=== PATIENT | male | born 1970 | race Caucasian/White ===

== ENCOUNTER 2020-10-23 10:50 | Emergency (ER) | payer OTHER, SELFPAY ==
--- NOTE | ~2020-10-23 | CT_ITS ---
EXAMINATION: CT abdomen pelvis wo con DATE: 10/23/2020 13:17 INDICATION: Left flank pain. Nausea and vomiting. TECHNIQUE: Computed tomography (CT) of the abdomen and pelvis was performed without intravenous contr ast. Automated exposure control and iterative reconstruction technique were employed. The dose-length product was 348.68 mGy-cm. COMPARISON: CT abdomen and pelvis 03/08/2018 FINDINGS: The visualized portions of the lung bases are clear without pneumonia or pleural effusion. The heart size is normal. There are coronary artery calcifications. No pericardial effusion. The live r, gallbladder, spleen, pancreas, and adrenal glands are normal. There are cysts in the kidneys measu ring up to 4.5 cm on the left. There is a 1 mm stone in right kidney. There is mild left hydronephros is. There is a 5 mm stone in proximal left ureter. There is prominent fat in the inguinal canals bila terally that may be small hernias. The prostate is moderately enlarged. There are no dilated loops of bowel. The appendix is normal. There are no pathologically enlarged lymph nodes. There is no free in traperitoneal fluid. There is moderate lumbar spondylosis. There is a chronic compression fracture of L3. IMPRESSION: 1. 5 mm stone in proximal left ureter with mild left hydronephrosis. 2. 1 mm nonobstructing right kidney stone. Reviewed, dictated and finalized at location A.
[2020-10-23 10:54] VITALS: BP 146/99; PULSE 102; RESP 16; TEMP 36.1; O2SAT 98
[2020-10-23 11:07] LABS: Basophils Percent Auto 0.4 % (0.2-1.2); Eosinophils Absolute Auto 0.3 K/mm3 (0-0.3); Eosinophils Percent Auto 3.2 % (0-4.4); Hematocrit 45.8 % (42.0-52.0); Hemoglobin 15.1 g/dL (14.0-18.0); Immature Granulocyte Absolute 0.02 K/mm3 (0.00-0.031); Immature Granulocyte Percent A 0.2 % (0-0.5); Lymphocytes Absolute Auto 1.64 K/mm3 (0.9-3.2); Lymphocytes Percent Auto 16.5 % (18.3-44.2); Mean Corpuscular Hemoglobin 30.4 pg (26-34); Mean Corpuscular Volume 92.3 fl (80-100); Mean Platelet Volume 10.8 fl (7.4-10.4); Monocytes Absolute Auto 1.1 K/mm3 (0.1-0.6); Monocytes Percent Auto 10.7 % (2.6-8.5); Neutrophils Absolute Auto 6.9 K/mm3 (1.3-6.7); Platelet Count Result 244 k/mm3 (150-375); Red Blood Count 4.96 M/mm3 (4.6-6.20); Red Cell Distribution Width 12.3 % (11.5-14.5)
[2020-10-23 11:20] LABS: Anion Gap 8 mmol/L (8-16); Blood Urea Nitrogen 10 mg/dL (9-20); Calcium 9.3 mg/dL (8.4-10.2); Carbon Dioxide 23 mmol/L (22-30); Chloride 108 mmol/L (98-107); Estimated CRCL calculation 78 ml/min; Estimated Glomerular Filt Rate > 60; Glucose 103 mg/dL (65-110); Potassium 3.9 mmol/L (3.4-5.0); Sodium 139 mmol/L (137-145)
[2020-10-23 12:33] VITALS: BP 151/106; PULSE 88; RESP 14; O2SAT 99
--- NOTE | 2020-10-23 12:50 | PC.NURSE ---
pt. to BR to attempt to void again
--- NOTE | 2020-10-23 12:52 | ED.ABDPAIN ---
HPI - Abdominal Pain General Chief Complaint: Abdominal Pain Stated Complaint: Flank pain Time Seen by Provider: 10/23/20 12:44 History of Present Illness HPI narrative: Patient presents with left flank pain. Pain reported symptoms present for the past couple days and getting progressively worse. Pain is achy, constant, intensity waxes and wanes. There are no clear aggravating or alleviating factors. Patient is not noted any dysuria or hematuria. Patient with a history of kidney stones and is symptoms feel similar to his prior stone. Reports last night he had some nausea and vomiting due to pain. Denies any diarrhea or constipation Related Data Home Medications Medication Instructions Recorded Confirmed amlodipine 10 mg PO DAILY 10/23/20 atorvastatin 40 mg PO DAILY 10/23/20 hydrochlorothiazide 12.5 mg PO DAILY 10/23/20 metoprolol tartrate [Lopressor] 50 mg PO DAILY 10/23/20 Allergies Allergy/AdvReac Type Severity Reaction Status Date / Time No Known Allergies Allergy Unverified 10/23/20 12:39 Review of Systems Review of Systems: CONSTITUTIONAL: Denies fever, chills, or sweats. EYES: Denies visual changes, redness, or discharge. ENT: Denies rhinorrhea, congestion, sore throat, or otalgia. CARDIOVASCULAR: Denies chest pain, palpitations, or edema. RESPIRATORY: Denies cough or dyspnea. GASTROINTESTINAL: Denies diarrhea. GENITOURINARY: Denies dysuria or hematuria. SKIN: Denies rash or itching. MUSCULOSKELETAL: Denies back pain, joint pain, or myalgia. NEUROLOGIC: Denies headache, numbness, dizziness, or weakness. PSYCHIATRIC: Denies anxiety or depression. All systems reviewed & are unremarkable except as noted in HPI and below Exam Narrative: GENERAL: Well-appearing, well-nourished, and in no acute distress. HEAD: Normocephalic, atraumatic. EYES: PERRLA and EOMI. ENT: Nares clear, no rhinorrhea or epistaxis. Mucous membranes moist. NECK: Supple. No masses. No JVD ABDOMEN: Soft, nontender, nondistended, normal active bowel sounds. BACK: No focal tenderness no CVA tenderness EXTREMITIES: Normal range of motion. No edema. SKIN: Warm, dry, no rash. NEURO: No focal deficits. Alert and oriented x3. PSYCH: Normal mood and affect. Course Reevaluation(s) Reevaluation #1: Reports feeling much improved results and plan reviewed with patient Date: 10/23/20 Time: 13:57 Vital Signs Vital signs: Vital Signs Temperature 36.1 C L 10/23/20 10:54 Pulse Rate 102 H 10/23/20 10:54 Respiratory Rate 16 10/23/20 10:54 Blood Pressure 146/99 H 10/23/20 10:54 Pulse Oximetry 98 10/23/20 10:54 Temperature 36.1 C L 10/23/20 10:54 Pulse Rate 89 10/23/20 14:32 Respiratory Rate 17 10/23/20 14:32 Blood Pressure 146/95 H 10/23/20 14:32 Pulse Oximetry 100 10/23/20 14:32 MDM - Abdominal Pain MDM Narrative Medical decision making narrative: H&P as above, vss, pt looks clinically well, exam reassuring, labs reassuring, img with 5 mm proximal stone on the left, additional labs/img considered, symptomatic relief available as needed, on reevaluation pt continues to looks clinically well. Suspect ureteral stone as etiology of patient's plan, dns acute kidney injury, infected stone, sepsis. plan to tx/monitor as op w/ pcm f/u findings/plan discussed with pt, pt agree/comfortable with plan, return precautions given Lab Data Result diagrams: 10/23/20 11:01 10/23/20 11:01 Labs: Lab Results 10/23/20 10/23/20 10/23/20 Range/Units 11:01 11:01 13:05 WBC 10.0 (4.5-10.0) K/mm3 RBC 4.96 (4.6-6.20) M/mm3 Hgb 15.1 (14.0-18.0) g/dL Hct 45.8 (42.0-52.0) % MCV 92.3 (80-100) fl MCH 30.4 (26-34) pg MCHC 33.0 (32-36) g/dl RDW 12.3 (11.5-14.5) % Plt Count 244 (150-375) k/mm3 MPV 10.8 H (7.4-10.4) fl Immature Gran % (Auto) 0.2 (0-0.5) % Neut % (Auto) 69.0 (45.5-73.1) % Lymph % (Auto) 16.5 L (18.3-44.2) % [place] % (Auto) 10.7
--- NOTE | 2020-10-23 13:04 | PC.NURSE ---
pt. voided scant amount of urine. Pt. aware may not be enough.
[2020-10-23] MEDS: KETOROLAC 15 MG/ML VIAL (*BKC) IV PUSH (13:11)
[2020-10-23 13:19] LABS: Add Urine Microscopic? YES; Appearance Urine Clear (Clear); Bilirubin Urine Negative (Negative); Blood Urine Negative (Negative); Color Urine Yellow (Yellow); Glucose Urine UA Negative (Negative); Ketones Urine Negative (Negative); Leukocyte Esterase Ur 1+ LEU/UL (Negative); Nitrate Urine Negative (Negative); Protein Urine Negative (Negative); RBC Urine 0-2 /hpf (0-2); Specific Grav Ur 1.019 (1.001-1.035); Squamous Epithelial Cell Urine Rare /hpf (Few)
[2020-10-23 14:32] VITALS: BP 146/95; PULSE 89; RESP 17; O2SAT 100
== END 2020-10-23 14:33 | disposition home or self-care (01) ==
PROVIDERS: Emergency Medicine; Emergency Provider Emergency Medicine; PCP Emergency Medicine
DX: N20.1 Calculus of ureter (principal)
CPT/HCPCS: 36415; 74176; 80048; 81001; 85025; 96374; 99284; J1885

== ENCOUNTER 2023-12-21 07:54 | Outpatient (CLI) | payer OTHER, SELFPAY ==
--- NOTE | ~2023-12-21 | XR_ITS ---
Lumbosacral Spine: AP and lateral views Clinical History: Pain Findings: The normal lordotic curve is maintained. The vertebral bodies and posterior elements are i ntact. There is mild degenerative disc change at L1-L2 and L2-L3.. Mild facet arthropathy present. Th e sacroiliac joints are normally outlined. Impression: Mild degenerative spondylosis, as above. Reviewed, dictated and finalized at location . Impression: Mild degenerative spondylosis, as above.
--- NOTE | ~2023-12-21 | XR_ITS ---
XR sacrum coccyx min 2V Ordering provider: Ladarius Minor, [employer] History: . Chronic back pain, RADIATES TO HIPS . Comparison: None. FINDINGS: BONES: No acute fracture or dislocation. JOINTS: The sacroiliac joint spaces are normal. SOFT TISSUES: Soft tissues are normal. IMPRESSION: No definite acute osseous abnormality sacrum and coccyx. Reviewed, dictated and finalized at location A.
[2023-12-21 08:19] LABS: Basophils Percent Auto 0.7 % (0.2-1.2); Eosinophils Absolute Auto 0.4 K/mm3 (0-0.3); Eosinophils Percent Auto 6.4 % (0-4.4); Hematocrit 46.7 % (42.0-52.0); Hemoglobin 15.2 g/dL (14.0-18.0); Immature Granulocyte Absolute 0.02 K/mm3 (0.00-0.031); Immature Granulocyte Percent A 0.3 % (0-0.5); Lymphocytes Absolute Auto 1.53 K/mm3 (0.9-3.2); Lymphocytes Percent Auto 25.3 % (18.3-44.2); Mean Corpuscular HGB Conc 32.5 g/dl (32-36); Mean Corpuscular Hemoglobin 31.1 pg (26-34); Mean Corpuscular Volume 95.7 fl (80-100); Monocytes Absolute Auto 0.7 K/mm3 (0.1-0.6); Monocytes Percent Auto 10.7 % (2.6-8.5); Neutrophils Absolute Auto 3.4 K/mm3 (1.3-6.7); Neutrophils Percent Auto 56.6 % (45.5-73.1); Platelet Count Result 240 k/mm3 (150-375); Red Blood Count 4.88 M/mm3 (4.6-6.20); Red Cell Distribution Width 12.5 % (11.5-14.5); White Blood Count 6.1 K/mm3 (4.5-10.0)
[2023-12-21 08:38] LABS: Alanine Aminotransferase 26 U/L (6-50); Albumin Level 4.3 g/dL (3.5-5.1); Alkaline Phosphatase 56 U/L (38-126); Anion Gap 6 mmol/L (4-12); Aspartate Amino Transferase 29 U/L (17-59); Bilirubin,Total 0.6 mg/dL (0.2-1.3); Blood Urea Nitrogen 12 mg/dL (9-20); Calcium 9.1 mg/dL (8.4-10.2); Carbon Dioxide 27 mmol/L (22-30); Chloride 106 mmol/L (98-107); Estimated Glomerular Filt Rate > 60; Glucose 105 mg/dL (65-110); Potassium 3.8 mmol/L (3.4-5.0); Sodium 139 mmol/L (137-145)
[2023-12-21 08:58] LABS: Free T4 Free Thyroxine 0.96 ng/mL (0.78-2.19)
[2023-12-21 09:05] LABS: Prostate Specific Antigen 1.2 ng/mL (< OR = 4.0); Total Triiodothyronine (T3) 2.44 NG/ML (0.97-1.69)
== END 2023-12-21 07:55 | disposition home or self-care (01) ==
PROVIDERS: PCP Emergency Medicine; Visit Provider Registered Nurse
DX: I10 Essential (primary) hypertension (principal); E78.5 Hyperlipidemia, unspecified; R53.83 Other fatigue; Z12.5 Encounter for screening for malignant neoplasm of prostate; M47.896 Other spondylosis, lumbar region
CPT/HCPCS: 36415; 72100; 72220; 80053; 84153; 84439; 84480; 85025; G0103